=== PATIENT | male | born 1980 | race Caucasian/White ===

== ENCOUNTER 2021-03-05 13:05 | Observation (INO) | payer OTHER ==
[~2021-03-05] VITALS: Ht 182.9 cm; Wt 119.7 kg
--- NOTE | ~2021-03-05 | OP ---
[address] [address] OPERATIVE REPORT Name: BHUPENDRA DELGADO Room: [address] Tabitha Taylor#: [id number] Admission: 03/05/21 Attend Phys: Arlette Iniguez MD Discharge: Date of : 84 Report #: [id number] THIS REPORT FOR: cc: Maddie Mireles Sarah Anne FNP Haggard, Kent L MD ~ DATE OF SURGERY: 03/06/2021 PREOPERATIVE DIAGNOSIS: A 6 mm proximal left ureteral stone. POSTOPERATIVE DIAGNOSIS: A 6 mm proximal left ureteral stone. PROCEDURES: Cystoscopy, left retrograde pyelogram, left ureteroscopy and left ureteral stent placement. 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 ANESTHESIA: General. ESTIMATED BLOOD LOSS: None. COMPLICATIONS: None. SPECIMENS: None. DRAINS: A 28 cm x 6-Macanese left ureteral stent. INDICATIONS FOR PROCEDURE: The patient is a 40-year-old male with history of kidney stones, presented with acute onset left flank pain to [facility]. CT scan confirmed a 6 mm proximal left ureteral stone with some hydronephrosis and intractable pain. He was counseled regarding treatment options, elected for definitive cystoscopy, left retrograde pyelogram, left ureteroscopy, possible holmium laser lithotripsy, possible placement of left ureteral stent. After risks and benefits of the procedure were explained, informed consent was obtained. DESCRIPTION OF PROCEDURE: The patient was taken to the operating room, comfortably placed in the dorsal lithotomy position under adequate general anesthesia. He was sterilely prepped and draped in sterile fashion exposing only the genitalia. He received his antibiotic therapy as prescribed. Appropriate time-out was carried out and all were in agreement. A 22-Macanese cystoscope was placed into the urethra. Anterior urethra was normal. Sphincter was intact. Prostate showed some minimal hyperplasia. Bladder was systematically viewed. Both ureteral orifices identified [place] [address] OPERATIVE REPORT Name: DANNYBHUPENDRA J [address]: [address]#: [id number] Admission: 03/05/21 Attend Phys: Arlette Iniguez MD Discharge: Date of : 84 Report #: [id number] calculi seen or foreign body observed. Mucosa was smooth without any irregularity. Under fluoroscopy could see a calcific density up in the vicinity of the proximal left ureter. An 8-Macanese cone-tipped catheter placed in the left ureteral orifice and a retrograde pyelogram performed showing kind of a normal caliber ureter all the way up to the calcific density corresponding to the stone seen on CT scan system more dilated proximally, was able to negotiate an 0.035 Glidewire up the left ureter to the level of the kidney. The cystoscope was then removed and a 4.5-Macanese tapered to a 6.5-Macanese Watts semirigid ureteroscope advanced through the urethra up the left ureter and gently placed adjacent to the guidewire all the way up to the level of the stone. Although we could reach the stone, really could not get a direct shot at the stone with the laser fiber. I elected not to attempt laser management. The semirigid scope was removed and a 28 cm x 6-Macanese ureteral stent was put in place and positioned with a good coil in the left renal pelvis and good coil in the bladder. Stone was easily identified next to the stent. He tolerated the procedure extremely well. He was extubated in the operating room, transferred to [facility] with assistance and went to recovery in stable condition. He tolerates the stent set up for ESWL, which can be done in a couple days. If he is not tolerating the stent, set up for stage 2 procedure next week for cystoscopy, left stent removal, ureteroscopy and holmium laser lithotripsy. By: [id number] Newman MD /cecy
[2021-03-05 13:16] VITALS: BP 162/98
[2021-03-05 13:34] LABS: HEMOGLOBIN 14.1 gm/dL (14.0-18.0); MCH 29.3 pg (26.0-34.0); MCHC 33.5 g/dL (28.0-37.0); MCV 87.5 fL (80.0-100.0); MPV 6.7 fl. (7.2-11.1); NUCLEATED RBCS 0 /100WBC; PLATELET COUNT* 279 thou/uL (150-400); RDW-CV 14.1 % (10.5-14.5)
[2021-03-05 13:43] LABS: CALCIUM 8.7 mg/dL (8.5-10.1); CREATININE 1.4 mg/dL (0.6-1.3); POTASSIUM 3.6 mmol/L (3.5-5.1)
[2021-03-05 13:53] LABS: TOTAL BILIRUBIN 0.5 mg/dL (<0.1-1.0); TOTAL PROTEIN 7.6 g/dL (6.4-8.2)
[2021-03-05 14:04] LABS: URINE BILIRUBIN NEGATIVE (Negative); URINE BLOOD 3+ (Negative); URINE CLARITY CLEAR; URINE COLOR YELLOW; URINE GLUCOSE-RANDOM NEGATIVE (Negative); URINE KETONES TRACE (Negative); URINE LEUKOCYTES-REFLEX NEGATIVE (Negative); URINE NITRITE-REFLEX NEGATIVE (Negative); URINE PROTEIN 2+ (Negative); URINE UROBILINOGEN 0.2 E.U./dl (0.2-1.0)
[2021-03-05 14:09] LABS: SQUAMOUS 0-3 Few /LPF (0-3)
[2021-03-05 14:10] LABS: BACTERIA-REFLEX >30 Many /HPF (None Seen); CASTS None Seen /LPF (None Seen); MUCUS >6 Heavy strn/LPF (None Seen); URINE RBC 3-10 Few /HPF (0-2); URINE WBC-REFLEX None Seen /HPF (0-5)
[2021-03-05 14:11] LABS: CALCIUM OXALATE 4-10 Moderate /LPF (None Seen)
[2021-03-05 14:14] LABS: ABSOLUTE LYMPHOCYTES 1.6 thou/uL (0.8-5.3); ABSOLUTE MONOCYTES 0.1 thou/uL (0.0-1.2); ABSOLUTE NEUTROPHILS 11.3 thou/uL (1.6-8.1); PLATELET ESTIMATE ADEQUATE
[2021-03-05 16:09] VITALS: BP 145/54
[2021-03-05 16:29] VITALS: BP 131/88
--- NOTE | 2021-03-05 18:18 | NUR ---
PATIENT ADMITTED TO ROOM 309 FROM ER. ALERT AND ORIENTED. PRN FENTANYL GIVEN FOR PAIN. IVF INFUSIING. REG DIET, NPO AFTER MIDNIGHT FOR POSSIBLE UROLOGY PROCEDURE. ORIENTED TO CALL LIGHT.
[2021-03-05 20:00] VITALS: BP 124/77
--- NOTE | 2021-03-06 07:50 | NUR ---
Alert and oriented x 4. He has been up independently in the room. He was having a lot of pain and difficulty voiding but he is voiding better. He has scheduled toradol for pain and he had prn MS x 2. He has slept well.
[2021-03-06 08:08] VITALS: BP 137/79
[2021-03-06 15:54] VITALS: BP 133/80
[2021-03-06] MEDS ORDERED: NORCO5 PO (17:01)
[2021-03-06] MEDS ORDERED: FLOMAX0.4 MG PO (18:05)
[2021-03-06] MEDS ORDERED: UROCIT-K15 MEQ PO (18:05)
--- NOTE | 2021-03-06 18:14 | NUR ---
DISCHARGE INSTUCTIONS AND MEDICATIONS DISCUSSED WITH PATIENT AND HIS . PT TRANSPORTED TO EXIT, DISCHARGED HOME IN STABLE CONDITION.
== END 2021-03-06 18:17 | disposition home or self-care (01) ==
LOC: M.ERS 13:05 → M.TBA-ER 15:35 → M.3W 15:35
PROVIDERS: Physician Assistant; ADMIT Internal Medicine; ATTEND Internal Medicine
DX: N13.2 Hydronephrosis with renal and ureteral calculous obstruction (principal); Z20.822 Contact with and (suspected) exposure to COVID-19; Z79.899 Other long term (current) drug therapy